=== PATIENT | female | born 2005 | race African-American/Black ===

== ENCOUNTER 2023-07-16 17:29 | Emergency (ER) | payer MEDICAID, OTHER ==
[~2023-07-16] VITALS: Ht 160 cm; Wt 59.4 kg
[2023-07-16 17:49] VITALS: BP 109/64; PULSE 94; RESP 20; TEMP 97.6; O2SAT 99
[2023-07-16] MEDS ORDERED: ALBU0.0912 INH (18:02)
[2023-07-16] MEDS ORDERED: ACET-10509 PO (18:02)
[2023-07-16] MEDS ORDERED: CAPS1ADH5 TP (18:02)
[2023-07-16 18:24] VITALS: BP 109/64; PULSE 94; RESP 20; TEMP 97.6; O2SAT 99
== END 2023-07-16 18:23 | disposition home or self-care (01) ==
LOC: MED 17:29
DX: O9A.212 Injury, poisoning and certain other consequences of external causes complicating pregnancy, second trimester (principal); S46.912A Strain of unspecified muscle, fascia and tendon at shoulder and upper arm level, left arm, initial encounter; S46.911A Strain of unspecified muscle, fascia and tendon at shoulder and upper arm level, right arm, initial encounter; M54.6 Pain in thoracic spine; O99.512 Diseases of the respiratory system complicating pregnancy, second trimester; J45.909 Unspecified asthma, uncomplicated; Z76.0 Encounter for issue of repeat prescription; Z3A.21 21 weeks gestation of pregnancy; Z79.899 Other long term (current) drug therapy
CPT/HCPCS: 99282